=== PATIENT | female | born 1940 | race Caucasian/White ===

== ENCOUNTER 2021-04-27 07:25 | Outpatient (REF) | payer SELFPAY ==
[2021-04-27 08:04] LABS: Hematocrit 37.1 % (37.0-47.0); Hemoglobin 11.7 g/dl (12.0-16.0); Mean Corpuscular HGB Conc 31.5 g/dl (31.0-35.0); Mean Corpuscular Hemoglobin 29.7 pg (27.0-33.0); Mean Corpuscular Volume 94.2 fL (80.0-98.0); Mean Platelet Volume 12.2 fL (9.4-12.3); Platelet Count 206 X10*3/uL (160-400); Red Blood Count 3.94 X10*6/uL (4.20-5.50)
[2021-04-27 08:22] LABS: Alanine Aminotransferase < 6 U/L (0-31); Albumin Level 3.9 g/dL (3.5-5.0); Alkaline Phosphatase 81 U/L (39-117); Anion Gap 14 (12-20); Aspartate Amino Transferase 8 U/L (5-31); Bilirubin Total 0.6 mg/dL (0.0-1.0); Blood Urea Nitrogen 16 mg/dL (9-16); Carbon Dioxide 24 mmol/L (22-29); Chloride 107 mmol/L (96-108); Estimated Glomerular Filt Rate 35; Glucose Random 76 mg/dL (60-115); Potassium 4.8 mmol/L (3.3-5.1); Sodium 140 mmol/L (135-145); Total Protein 6.3 g/dL (6.5-8.0)
[2021-04-27 08:50] LABS: Atypical Lymph Absolute Manual 0.1 x10*3/uL; Atypical Lymphs Percent Manual 1 % (0-6); Band Neutrophils Percent 4 % (3-5); Eosinophils Absolute Manual 0.1 X10*3/uL (0.0-0.4); Eosinophils Percent Manual 1 % (0-4); Lymphocytes Absolute Manual 1.2 X10*3/uL (1.2-4.9); Lymphocytes Percent Manual 15 % (20-40); Monocytes Absolute Manual 0.7 X10*3/uL (0.1-1.2); Monocytes Percent Manual 9 % (2-11); Neutrophils Absolute Manual 5.9 X10*3/uL (2.0-8.3); Neutrophils Percent Manual 70 % (45-73); Platelet Estimate NORMAL (NORMAL); Platelet Morphology Comment NORMAL; RBC Morphology NORMAL
== END 2021-04-27 07:26 | disposition home or self-care (01) ==
LOC: HO.MMNH1L 07:25
PROVIDERS: Visit Provider Family Medicine
DX: N18.9 Chronic kidney disease, unspecified (principal)
CPT/HCPCS: 36415; 80053; 85007; 85025; 85027

== ENCOUNTER 2021-04-28 07:46 | Outpatient (REF) | payer SELFPAY ==
[2021-04-28 08:26] LABS: Lithium 0.74 mmol/L (0.60-1.20)
== END 2021-04-28 07:47 | disposition home or self-care (01) ==
LOC: HO.MMNH1L 07:46
PROVIDERS: Visit Provider Family Medicine
DX: I25.10 Atherosclerotic heart disease of native coronary artery without angina pectoris (principal); Z51.81 Encounter for therapeutic drug level monitoring; Z79.899 Other long term (current) drug therapy
CPT/HCPCS: 36415; 80178

== ENCOUNTER 2021-05-01 23:28 | Inpatient (IN) | payer MEDICARE, OTHER, SELFPAY ==
--- NOTE | ~2021-05-01 | US_ITS ---
EXAMINATION: US PELVIS CLINICAL INFORMATION: r/o ovarian torsion COMPARISON: CT from the same day. TECHNIQUE: Ultrasound of the pelvis is performed using both transabdominal and transvaginal transducers along with Doppler. Transvaginal imaging is performed due to inadequate visualization transabdominally. FINDINGS: Uterus: The uterus is anteverted and measures 5.1 x 2.3 x 3.8 cm. The endometrium is thin, measuring 3 mm in thickness. Trace endometrial fluid. The uterine myometrium is heterogeneous with areas of shadowing and abnormal contour, most consistent with intramural fibroids. These measure up to 2.2 cm in diameter. Adnexa: Right ovary measures 1.6 x 1.1 x 1.5 cm. It demonstrates normal blood flow on color and spectral Doppler with arterial waveforms. At the left adnexa, there is a 5.3 x 3.6 x 5.6 cm solid lesion with a discrete margin and heterogeneous, shadowing internal echogenicity. The site of origin of this is uncertain sonographically as it is contiguous with the uterus and extending into the adnexal region. There is a normal blood flow within this structure on color Doppler. There is a smaller structure in the left adnexal region measuring 1.9 x 1 x 1.4 cm which may correspond to the left ovary, separate from the aforementioned lesion, though this is not well assessed sonographically. US/US pelvic complete IMPRESSION: 1. A 5.6 cm solid left adnexal lesion with an uncertain site of origin on both ultrasound and CT, possibly ovarian in nature. MRI of the pelvis with and without contrast advised for further characterization of this lesion. 2. No evidence of ovarian torsion. 3. Small uterine fibroids..
--- NOTE | ~2021-05-01 | XR_ITS ---
EXAMINATION: CHEST AND SKULL. CLINICAL INFORMATION: MRI screening COMPARISON: None TECHNIQUE: 1 new. Skull to views. FINDINGS: Chest: The lungs are well-expanded and clear of acute process. The heart size and pulmonary vascularity is normal. No gross bony abnormality seen. Skull: There is no visible acute fracture or bony abnormality. Bilateral paranasal sinuses and mastoid air cells are well-aerated. No radiopaque foreign body seen. XR/XR chest 1V IMPRESSION: Remarkable chest exam. No radiopaque foreign body seen in the orbits.
--- NOTE | ~2021-05-01 | US_ITS ---
EXAMINATION: US PELVIS CLINICAL INFORMATION: r/o ovarian torsion COMPARISON: CT from the same day. TECHNIQUE: Ultrasound of the pelvis is performed using both transabdominal and transvaginal transducers along with Doppler. Transvaginal imaging is performed due to inadequate visualization transabdominally. FINDINGS: Uterus: The uterus is anteverted and measures 5.1 x 2.3 x 3.8 cm. The endometrium is thin, measuring 3 mm in thickness. Trace endometrial fluid. The uterine myometrium is heterogeneous with areas of shadowing and abnormal contour, most consistent with intramural fibroids. These measure up to 2.2 cm in diameter. Adnexa: Right ovary measures 1.6 x 1.1 x 1.5 cm. It demonstrates normal blood flow on color and spectral Doppler with arterial waveforms. At the left adnexa, there is a 5.3 x 3.6 x 5.6 cm solid lesion with a discrete margin and heterogeneous, shadowing internal echogenicity. The site of origin of this is uncertain sonographically as it is contiguous with the uterus and extending into the adnexal region. There is a normal blood flow within this structure on color Doppler. There is a smaller structure in the left adnexal region measuring 1.9 x 1 x 1.4 cm which may correspond to the left ovary, separate from the aforementioned lesion, though this is not well assessed sonographically. US/US pelvic ovarian doppler IMPRESSION: 1. A 5.6 cm solid left adnexal lesion with an uncertain site of origin on both ultrasound and CT, possibly ovarian in nature. MRI of the pelvis with and without contrast advised for further characterization of this lesion. 2. No evidence of ovarian torsion. 3. Small uterine fibroids..
--- NOTE | ~2021-05-01 | CT_ITS ---
EXAMINATION: CT ABDOMEN AND PELVIS WITHOUT CONTRAST CLINICAL INFORMATION: Bilateral lower quadrant pain. COMPARISON: None TECHNIQUE: Multidetector volumetric imaging was performed from the superior aspect of the liver through the pubic symphysis. Sagittal and coronal reformatted images were obtained on the technologist's workstation. This CT examination was performed using dose optimization techniques as appropriate, variously including the following: *Automated exposure control *Adjustment of mA and/or kV according to patient size (this includes techniques or standardized protocols for targeted exams where dose is matched to indication/reason for exam; i.e. extremities or head) *Use of iterative reconstruction technique DLP: 588 mGy-cm FINDINGS: LUNG BASES: Mild dependent atelectasis. Minimal bronchiectasis in the lower lobes. No cardiomegaly. Mild to moderate size sliding-type hiatal hernia. LIVER, GALLBLADDER, AND BILIARY TREE: The liver is normal in size, shape, and attenuation. No focal hepatic lesion or biliary ductal dilatation is present. Cholelithiasis. No gallbladder wall thickening or surrounding fat stranding to indicate acute cholecystitis. PANCREAS: Unremarkable. SPLEEN: There is a round, sharply marginated 3.3 cm splenic lesion with internal attenuation of 13 Hounsfield units, possibly a hemangioma. There is a 2 cm focus at the posterior inferior margin of the spleen which likely corresponds to a small splenule. ADRENAL GLANDS: There is mild nodular thickening of the left adrenal gland measuring up to 1.2 cm in diameter with a density of 5 Hounsfield units, most consistent with lipid rich adenomatous changes. KIDNEYS AND URETERS: Numerous bilateral renal parenchymal calcifications are identified in the uncinate etiology. No appreciable renal calculi. Kidneys are normal in size and contour with normal cortical thickness. No hydronephrosis or hydroureter. No perinephric stranding. BLADDER: Unremarkable. GASTROINTESTINAL TRACT: Stomach, small bowel, and colon are normal in caliber. Noted above, there is a small to moderate-sized hiatal hernia. Normal appendix. Moderate diffuse colonic diverticulosis. Moderate stool volume. No intracranial free fluid or free air. ABDOMINAL WALL: No significant hernia is appreciated. LYMPH NODES: Normal. VASCULAR: Calcific atherosclerotic disease is evident within the aorta and iliac arteries. PELVIC VISCERA: Multiple calcified uterine fibroids are noted. There is a large noncalcified 8 x 4.6 x 5 cm soft tissue focus at the left adnexa, likely corresponding to the left ovary. No right adnexal lesions are identified. OSSEOUS STRUCTURES: Moderate to severe multilevel degenerative disc disease in the lumbar spine with grade 1 retrolisthesis of L1 on L2. Multilevel degenerative disc disease. No fractures. Mild osteoarthritis in the hips. Bones are osteopenic. CT/CT abdomen pelvis wo con IMPRESSION: 1. An 8 cm left adnexal lesion occupying the majority of the right ovary. Further assessment with ultrasound is advised. A pedunculated fibroid could have this appearance, though would be atypical at this size for the patient's age in the absence of calcifications. A primary ovarian lesion is suspected. 2. Otherwise, no acute abnormalities identified in the abdomen and pelvis. 3. Moderate colonic diverticulosis without evidence of acute diverticulitis. 4. Small to moderate-sized sliding-type hiatal hernia. 5. Numerous bilateral renal parenchymal calcifications which are of uncertain etiology, favored to correspond to cortical nephrocalcinosis. In the absence of a contributing clinical history (such as glomerulonephritis or a known metabolic syndrome), a prior opportunistic infection is a consideration. 6. A 2.3 cm splenic lesion has a nonaggressive appearance, most likely hemangioma. Consider correlation with MRI of the abdomen with and without contrast on a nonemergent basis if warranted clinically.
--- NOTE | ~2021-05-01 | XR_ITS ---
EXAMINATION: CHEST AND SKULL. CLINICAL INFORMATION: MRI screening COMPARISON: None TECHNIQUE: 1 new. Skull to views. FINDINGS: Chest: The lungs are well-expanded and clear of acute process. The heart size and pulmonary vascularity is normal. No gross bony abnormality seen. Skull: There is no visible acute fracture or bony abnormality. Bilateral paranasal sinuses and mastoid air cells are well-aerated. No radiopaque foreign body seen. XR/XR skull <4V IMPRESSION: Remarkable chest exam. No radiopaque foreign body seen in the orbits.
--- NOTE | ~2021-05-01 | MR_ITS ---
EXAMINATION: MR PELVIS WITHOUT AND WITH CONTRAST CLINICAL INFORMATION: 80-year-old female with adnexal mass. COMPARISON: Pelvic ultrasound and CT imaging from 05/02/2021 TECHNIQUE: MR imaging the pelvis is performed using standard sequences on a high-field magnet without and with intravenous administration of 6.5 mL Gadavist. FINDINGS: The anteflexed, anteverted uterus measures 7.5 x 3.2 x 4.2 cm (cervix to fundus x AP x transverse dimensions). The cervix is normal. The endometrium is normal; it measures 0.4 cm AP. A 2.1 cm hypointense structure of the left anterior uterine body represents a leiomyoma. A T2 hypointense, partially calcified subserosal leiomyoma of the anterior right fundus measures up to 1.4 cm. A partially calcified subserosal/exophytic leiomyoma of the posterior left uterine body measures up to 2 cm. A 4.4 x 7.8 x 5.5 cm heterogeneous lesion in the left adnexal area is predominantly T2 hypointense and, on the T1-weighted images, is isointense to the uterine myometrium. On the T2-weighted images, this has the appearance of a partially degenerated leiomyoma. It enhances heterogeneously and mildly after contrast administration. This likely represents a large subserosal, pedunculated leiomyoma with likely very thin stalk of attachment to the uterine surface. The ovaries are not well seen and are likely chronically atrophied. A 0.9 x 1.5 cm structure that projects just superior to the suspected left-sided pedunculated leiomyoma probably represents the atrophied left ovary. A small, 1.2 x 1.6 cm structure in the right adnexal area is likely the atrophied right ovary. No pelvic free fluid. Urinary bladder is well distended and has normal wall thickness. No bladder mass. No iliac or inguinal lymphadenopathy. No dilated bowel loops within the visualized lower abdomen or pelvis. Diverticulosis of the sigmoid colon without diverticulitis. Degenerative disc disease of L4-L5. At L5-S1, facet arthropathy is associated with minimal anterolisthesis of L5 on S1. MR/MR pelvis wo/w con IMPRESSION: There are multiple uterine leiomyomas. The 4.4 x 7.8 x 5.5 cm heterogeneous, predominantly T2 hypointense structure in the left adnexal area appears to represent a pedunculated leiomyoma. There appear to be small, atrophied ovaries. There is no pelvic free fluid or lymphadenopathy.
[2021-05-01 23:34] VITALS: BP 158/79; PULSE 74; RESP 12; TEMP 37.3; O2SAT 99; BMI 26.0
[2021-05-01 23:53] LABS: Hematocrit 34.9 % (37.0-47.0); Hemoglobin 11.4 g/dl (12.0-16.0); Mean Corpuscular HGB Conc 32.7 g/dl (31.0-35.0); Mean Corpuscular Hemoglobin 29.2 pg (27.0-33.0); Mean Corpuscular Volume 89.3 fL (80.0-98.0); Mean Platelet Volume 11.9 fL (9.4-12.3); Platelet Count 185 X10*3/uL (160-400); Red Blood Count 3.91 X10*6/uL (4.20-5.50); White Blood Count 10.9 X10*3/uL (4.8-10.8)
[2021-05-02] VITALS (8 sets, daily range): BP systolic 127–166; BP diastolic 58–93; PULSE 66–74; RESP 16–21; TEMP 36.6–37.2; O2SAT 94–99
[2021-05-02 00:06] LABS: COVID-19 Test Negative (Negative)
[2021-05-02 00:17] LABS: Alanine Aminotransferase < 6 U/L (0-31); Alkaline Phosphatase 83 U/L (39-117); Anion Gap 14 (12-20); Aspartate Amino Transferase 8 U/L (5-31); Bilirubin Total 0.5 mg/dL (0.0-1.0); Blood Urea Nitrogen 20 mg/dL (9-16); Calcium 9.8 mg/dL (8.4-10.2); Carbon Dioxide 22 mmol/L (22-29); Chloride 101 mmol/L (96-108); Creatinine Clr Calc Pharmacy 22.7; Estimated Glomerular Filt Rate 27; Glucose Random 119 mg/dL (60-115); Potassium 4.7 mmol/L (3.3-5.1); Sodium 132 mmol/L (135-145); Total Protein 6.3 g/dL (6.5-8.0)
--- NOTE | 2021-05-02 00:30 | PC.NURSE ---
Assumed care of pt Pt from [facility] c/o RT and LT sided abdominal pain. 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
[2021-05-02 00:40] LABS: Acanthocytes 1+ (0-2) /OIF; Band Neutrophils Percent 7 % (3-5); Burr Cells 1+ (0-2) /OIF; Eosinophils Absolute Manual 0.1 X10*3/uL (0.0-0.4); Eosinophils Percent Manual 1 % (0-4); Lymphocytes Absolute Manual 0.9 X10*3/uL (1.2-4.9); Lymphocytes Percent Manual 8 % (20-40); Monocytes Absolute Manual 0.5 X10*3/uL (0.1-1.2); Monocytes Percent Manual 5 % (2-11); Neutrophils Absolute Manual 9.4 X10*3/uL (2.0-8.3); Neutrophils Percent Manual 79 % (45-73); Platelet Estimate SLIGHTLY DECREASED (NORMAL); Platelet Morphology Comment NORMAL; RBC Morphology NORMAL; Schistocytes 1+ (0-2) /OIF; Smudge Cells PRESENT
--- NOTE | 2021-05-02 00:46 | ED.ABDPAIN ---
HPI - Abdominal Pain General Chief Complaint: Abdominal Pain Stated Complaint: abd pain Time Seen by Provider: 05/02/21 00:35 Source: patient Mode of arrival: ambulatory Limitations: no limitations History of Present Illness HPI narrative: Patient comes emergency room complaining of bilateral lower quadrant pain. Patient has memory issues, but states that she believes it has been approximately 3 days, related to constipation. Patient had 1 episode of vomiting, no diarrhea, no fever chills, does not remember if she has UTI like symptoms. Related Data Allergies Allergy/AdvReac Type Severity Reaction Status Date / Time omeprazole [From PRILOSEC] Allergy Unknown ITCHY Unverified 10/25/19 16:16 Sulfa (Sulfonamide Allergy Unknown ? RXN - Unverified 10/25/19 16:16 Antibiotics) HAD [SULFA(SULFONAMIDE CHILD ANTIBIOTICS)] From PRILOSEC Allergy Unknown ITCHY Uncoded 10/25/19 16:16 Review of Systems Review of Systems Constitutional : No Weight loss, No Fever, No Chills, No Night Sweats, No Fatigue, No Malaise ENT/Mouth : No Hearing loss, No Ear Pain, No Nasal Congestion, No Sinus Pain, No Hoarseness, No sore throat, No Rhinorrhea, No Swallowing Difficulty Eyes: No Eye Pain, No Swelling, No Redness, No Foreign Body, No Discharge, No Vision Changes Cardiovascular : No Chest Pain, No SOB, No Dyspnea on Exertion, No Orthopnea, No Edema, No Palpitations Respiratory : No Cough, No Sputum, No Wheezing, No Smoke Exposure, No Dyspnea Gastrointestinal : No Nausea, 1 episode of vomiting prior to arrival, No Diarrhea, complaining of constipation, last BM 3 days ago, complaining of abdominal lower pain bilaterally, No Hematochezia, No Melena Genitourinary : no irregular bleeding, No Dysuria, No Urinary Frequency, No Hematuria, No Urinary Incontinence, No Urgency, No Flank Pain, No Urinary Flow Changes, No Hesitancy Musculoskeletal : No joint pain, No Myalgias, No Joint Swelling Skin : No Skin Lesions, No rash Neuro : No Weakness, No Numbness, No Paresthesias, No Loss of Consciousness, No Dizziness, No Headache Psych : No Anxiety/Panic, No Depression, No SI/HI/AH/VH, No Social Issues, Heme/Lymph: No Bruising, No Bleeding,No Lymphadenopathy Endocrine : No Polyuria, No Polydipsia, No Temperature Intolerance [facility] Past Medical History Medical History (Updated 05/02/21 @ 06:20 by Meliza Naik MD) Bipolar disorder Chronic kidney disease, stage 3 Depression GERD (gastroesophageal reflux disease) Hypothyroidism Parkinsons Sarcoidosis Social History Social History Advance Directives: No Advance Directives Information Provided: No Physical Exam ED Vital Signs: Vital Signs - 24 hr 05/01/21 23:34 05/02/21 01:04 05/02/21 02:34 Temperature 99.2 F 99.0 F Pulse Rate 74 66 72 Respiratory Rate 12 18 18 Blood Pressure 158/79 H 161/82 H 149/79 H Pulse Oximetry 99 98 98 BMI result Body Mass Index 26.0 Const Other: Appearance: Alert. Oriented X3. No acute distress. Anxious Eyes: Pupils equal, round and reactive to light. ENT: Pharynx normal. Neck: Normal inspection. Neck supple. No lymph nodes noted. No crepitus CVS: Normal heart rate and rhythm. Pulses normal. Normal S1 and S2 Respiratory: No respiratory distress. Breath sounds normal. No Wheezing. No rales Abdomen: Soft, mild distension, [id number] lower quadrant pain on deep palpation and suprapubic area, no rebound, no guarding Skin: Skin warm and dry. Normal skin color. Normal skin turgor. Extremities: No lower extremity edema. No Lacerations. No Rash Neuro: Oriented X 3. No motor deficit. No sensory deficit. Moving all extremities. No slurred speech. CN 2 through 12 grossly intact Psych: calm, cooperative, normal affect but slightly anxious Course Course Course Narrative: Patient has a mildly elevated creatinine, likely chronic, per patient's paper she has history of chronic kidney disease stage 3. I discussed the labs and imaging with the patient. Patient seems comfortable, ovarian torsion is not suspected. 03:45, patient states that her abdominal pain has only gotten worse, can not point to where the pain is, location changes. At this time, we will go ahead and order the ultrasound to rule out torsion. Ultrasound does not show torsion, however patient will need MRI. Patient continues having bilateral lower quadrant pain. Patient giving an additional dose of 1 mg of morphine. I discussed the patient with Dr. Bloom, pt being admitted MDM - Abdominal Pain Lab Data Result diagrams: 05/01/21 23:47 05/01/21 23:47 Labs: Lab Results 05/01/21 05/01/21 05/01/21 Range/Units 23:47 23:47 23:47 WBC 10.9 H (4.8-10.8) X10*3/uL RBC 3.91 L (4.20-5.50) X10*6/uL Hgb 11.4 L (12.0-16.0) g/dl Hct 34.9 L (37.0-47.0) % MCV 89.3 (80.0-98.0) fL MCH 29.2 (27.0-33.0) pg MCHC 32.7 (31.0-35.0) g/dl RDW 13.0 (11.0-16.0) % Plt Count 185 (160-400) X10*3/uL MPV 11.9 (9.4-12.3) fL Immature Gran % (Auto) Cancelled Neut % (Auto) Cancelled Lymph % (Auto) Cancelled [place] % (Auto) Cancelled Eos % (Auto) Cancelled Baso % (Auto) Cancelled Lymph # (Auto) Cancelled [place] # (Auto) Cancelled Eos # (Auto) Cancelled Baso # (Auto) Cancelled Abs Immat Gran (auto) Cancelled Absolute Neuts (auto) Cancelled Absolute Nucleated RBC 0.000 (0.0-0.012) X10*3/uL Nucleated RBC % (auto) 0.0 (0.0-0.2) /100WBC Neutrophils % (Manual) 79 H (45-73) % Band Neutrophils % 7 H (3-5) % Lymphocytes % (Manual) 8 L (20-40) % Monocytes % (Manual) 5 (2-11) % Eosinophils % (Manual) 1 (0-4) % Abs Neuts (Manual) 9.4 H (2.0-8.3) X10*3/uL Lymphocytes # (Manual) 0.9 L (1.2-4.9) X10*3/uL Monocytes # (Manual) 0.5 (0.1-1.2) X10*3/uL Eosinophils # (Manual) 0.1 (0.0-0.4) X10*3/uL Smudge Cells PRESENT Platelet Estimate SLIGHTLY DECREASED (NORMAL) Plt Morphology Comment NORMAL RBC Morphology NORMAL Ty Cells 1+ (0-2) /OIF Acanthocytes (Spur) 1+ (0-2) /OIF Schistocytes 1+ (0-2) /OIF Sodium 132 L (135-145) mmol/L Potassium 4.7 (3.3-5.1) mmol/L Chloride 101 (96-108) mmol/L Carbon Dioxide 22 (22-29) mmol/L Anion Gap 14 (12-20) BUN 20 H (9-16) mg/dL Creatinine 1.81 H (0.5-1.4) mg/dL Estim Creat Clear Calc 22.7 Estimated GFR 27 Random Glucose 119 H (60-115) mg/dL Calcium 9.8 (8.4-10.2) mg/dL Total Bilirubin 0.5 (0.0-1.0) mg/dL AST 8 (5-31) U/L ALT < 6 (0-31) U/L Alkaline Phosphatase 83 (39-117) U/L Total Protein 6.3 L (6.5-8.0) g/dL Albumin 4.0 (3.5-5.0) g/dL Urine Color Urine Appearance Urine pH (5.0-8.0) Ur Specific [place] (1.005-1.025) Urine Protein (NEG-TRACE) MG/DL Urine Glucose (UA) (NEG) MG/DL Urine Ketones (NEG) MG/DL Urine Blood (NEG) Urine Nitrite (NEG) Ur Leukocyte Esterase (NEG) COVID-19 (YASEMIN) Negative (Negative) COVID-19 Clin Com See Note 05/02/21 Range/Units 01:29 WBC (4.8-10.8) X10*3/uL RBC (4.20-5.50) X10*6/uL Hgb (12.0-16.0) g/dl Hct (37.0-47.0) % MCV (80.0-98.0) fL MCH (27.0-33.0) pg MCHC (31.0-35.0) g/dl RDW (11.0-16.0) % Plt Count (160-400) X10*3/uL MPV (9.4-12.3) fL Immature Gran % (Auto) Neut % (Auto) Lymph % (Auto) [place] % (Auto) Eos % (Auto) Baso % (Auto) Lymph # (Auto) [place] # (Auto) Eos # (Auto) Baso # (Auto) Abs Immat Gran (auto) Absolute Neuts (auto) Absolute Nucleated RBC (0.0-0.012) X10*3/uL Nucleated RBC % (auto) (0.0-0.2) /100WBC Neutrophils % (Manual) (45-73) % Band Neutrophils % (3-5) % Lymphocytes % (Manual) (20-40) % Monocytes % (Manual) (2-11) % Eosinophils % (Manual) (0-4) % Abs Neuts (Manual) (2.0-8.3) X10*3/uL Lymphocytes # (Manual) (1.2-4.9) X10*3/uL Monocytes # (Manual) (0.1-1.2) X10*3/uL Eosinophils # (Manual) (0.0-0.4) X10*3/uL Smudge Cells Platelet Estimate (NORMAL) Plt Morphology Comment RBC Morphology Ty Cells /OIF Acanthocytes ([place]) /OIF Schistocytes /OIF Sodium (135-145) mmol/L Potassium (3.3-5.1) mmol/L Chloride (96-108) mmol/L Carbon Dioxide (22-29) mmol/L Anion Gap (12-20) BUN (9-16) mg/dL Creatinine (0.5-1.4) mg/dL Estim Creat Clear Calc Estimated GFR Random Glucose (60-115) mg/dL Calcium (8.4-10.2) mg/dL Total Bilirubin (0.0-1.0) mg/dL AST (5-31) U/L ALT (0-31) U/L Alkaline Phosphatase (39-117) U/L Total Protein (6.5-8.0) g/dL Albumin (3.5-5.0) g/dL Urine Color STRAW Urine Appearance CLEAR Urine pH 7.0 (5.0-8.0) Ur Specific [place] <= 1.005 (1.005-1.025) Urine Protein NEG (NEG-TRACE) MG/DL Urine Glucose (UA) NEG (NEG) MG/DL Urine Ketones NEG (NEG) MG/DL Urine Blood NEG (NEG) Urine Nitrite NEG (NEG) Ur Leukocyte Esterase NEG (NEG) COVID-19 (YASEMIN) (Negative) COVID-19 Clin Com Imaging Data US - abdomen: Radiologist's impression: Uterus: The uterus is anteverted and measures 5.1 x 2.3 x 3.8 cm.? The endometrium is thin, measuring 3 mm in thickness. Trace endometrial fluid. The uterine myometrium is heterogeneous with areas of shadowing and abnormal contour, most consistent with intramural fibroids. These measure up to 2.2 cm in diameter. Adnexa: Right ovary measures 1.6 x 1.1 x 1.5 cm. It demonstrates normal blood flow on color and spectral Doppler with arterial waveforms. At the left adnexa, there is a 5.3 x 3.6 x 5.6 cm solid lesion with a discrete margin and heterogeneous, shadowing internal echogenicity. The site of origin of this is uncertain sonographically as it is contiguous with the uterus and extending into the adnexal region. There is a normal blood flow within this structure on color Doppler. There is a smaller structure in the left adnexal region measuring 1.9 x 1 x 1.4 cm which may correspond to the left ovary, separate from the aforementioned lesion, though this is not well assessed sonographically. US/US pelvic ovarian doppler IMPRESSION: 1. A 5.6 cm solid left adnexal lesion with an uncertain site of origin on both ultrasound and CT, possibly ovarian in nature. MRI of the pelvis with and without contrast advised for further characterization of this lesion. 2. No evidence of ovarian torsion. 3. Small uterine fibroids.. CT scan - abdomen: Radiologist's impression: FINDINGS: LUNG BASES: Mild dependent atelectasis. Minimal bronchiectasis in the lower lobes. No cardiomegaly. Mild to moderate size sliding-type hiatal hernia.? LIVER, GALLBLADDER, AND BILIARY TREE: The liver is normal in size, shape, and attenuation. No focal hepatic lesion or biliary ductal dilatation is present. Cholelithiasis. No gallbladder wall thickening or surrounding fat stranding to indicate acute cholecystitis.? PANCREAS: Unremarkable.? SPLEEN: There is a round, sharply marginated 3.3 cm splenic lesion with internal attenuation of 13 Hounsfield units, possibly a hemangioma. There is a 2 cm focus at the posterior inferior margin of the spleen which likely corresponds to a small splenule. ADRENAL GLANDS: There is mild nodular thickening of the left adrenal gland measuring up to 1.2 cm in diameter with a density of 5 Hounsfield units, most consistent with lipid rich adenomatous changes.? KIDNEYS AND URETERS: Numerous bilateral renal parenchymal calcifications are identified in the uncinate etiology. No appreciable renal calculi. Kidneys are normal in size and contour with normal cortical thickness. No hydronephrosis or hydroureter. No perinephric stranding. BLADDER: Unremarkable.? GASTROINTESTINAL TRACT: Stomach, small bowel, and colon are normal in caliber. Noted above, there is a small to moderate-sized hiatal hernia. Normal appendix. Moderate diffuse colonic diverticulosis. Moderate stool volume. No intracranial free fluid or free air.? ABDOMINAL WALL: No significant hernia is appreciated.? LYMPH NODES: Normal. VASCULAR: Calcific atherosclerotic disease is evident within the aorta and iliac arteries. PELVIC VISCERA: Multiple calcified uterine fibroids are noted. There is a large noncalcified 8 x 4.6 x 5 cm soft tissue focus at the left adnexa, likely corresponding to the left ovary. No right adnexal lesions are identified.? OSSEOUS STRUCTURES: Moderate to severe multilevel degenerative disc disease in the lumbar spine with grade 1 retrolisthesis of L1 on L2. Multilevel degenerative disc disease. No fractures. Mild osteoarthritis in the hips. Bones are osteopenic.? CT/CT abdomen pelvis wo con IMPRESSION: 1. An 8 cm left adnexal lesion occupying the majority of the right ovary. Further assessment with ultrasound is advised. A pedunculated fibroid could have this appearance, though would be atypical at this size for the patient's age in the absence of calcifications. A primary ovarian lesion is suspected. 2. Otherwise, no acute abnormalities identified in the abdomen and pelvis. 3. Moderate colonic diverticulosis without evidence of acute diverticulitis. 4. Small to moderate-sized sliding-type hiatal hernia. 5. Numerous bilateral renal parenchymal calcifications which are of uncertain etiology, favored to correspond to cortical nephrocalcinosis. In the absence of a contributing clinical history (such as glomerulonephritis or a known metabolic syndrome), a prior opportunistic infection is a consideration. 6. A 2.3 cm splenic lesion has a nonaggressive appearance, most likely hemangioma. Consider correlation with MRI of the abdomen with and without contrast on a nonemergent basis if warranted clinically. Discharge Plan Discharge Clinical Impression: Abdominal pain, Mass of ovary Patient Disposition: Admitted As Inpatient
[2021-05-02 01:35] LABS: Appearance Urine CLEAR; Color Urine STRAW; Glucose Urine UA NEG (NEG); Leukocyte Esterase Urine NEG (NEG); Nitrite Urine NEG (NEG); Specific Gravity - Urine <= 1.005 (1.005-1.025); Urine Blood NEG (NEG); Urine Ketones NEG (NEG); Urine Protein NEG (NEG-TRACE)
[2021-05-02] MEDS: 0.9 % Sodium Chloride 1,000 ML 999 ML IVCONT (02:46)
[2021-05-02] MEDS: Morphine Sulfate 2 MG/ML CARTRIDGE IVPUSH (03:35)
[2021-05-02] MEDS: ondansetron HCL 4 MG/2 ML VIAL IVPUSH (03:43)
--- NOTE | 2021-05-02 04:45 | PC.NURSE ---
Pt to US
[2021-05-02] MEDS: Morphine Sulfate 2 MG/ML CARTRIDGE 1 MG IVPUSH (06:27)
--- NOTE | 2021-05-02 08:06 | PHA.MEDREC ---
Pharmacy Consult ? Medication Reconciliation Pharmacy has completed the medication reconciliation.
[2021-05-02] MEDS: Dextrose 5 % and 0.9 % NaCl 1,000 ML 100 ML IVCONT (08:20)
[2021-05-02] MEDS: 0.9 % Sodium Chloride Flush 3 ML SYRINGE IVFLUSH ×3 (08:21→22:50)
[2021-05-02] MEDS: Carbidopa/Levodopa 25/100 TABLET 3 TAB PO ×3 (08:21→22:47)
[2021-05-02] MEDS: Enoxaparin Sodium 30 MG/0.3 ML SYRINGE SUBCUT (08:22)
--- NOTE | 2021-05-02 09:22 | MHC.CM.PN ---
CM CALLED [facility] [phone] AND CONFIRMED WITH PLANNING ADVISOR THAT PT WAS SENT FROM THEIR 1ST FLOOR UNIT CM REQUESTED TO SPEAK THE A NURSE ON THAT UNIT, HOWEVER THEY NEVER PICKED UP THE PHONE ONCE CALL WAS TRANSFERRED. CM AWAITING LIAISON RESPONSE IN [facility] TO DETERMINE IF PT IS LTC VS STR AND IF SHE HAS A HCP
--- NOTE | 2021-05-02 09:34 | P.HPHOSP_ITS ---
History of Present Illness Date of Service: 05/02/21 Chief Complaint: Abdominal pain Pleasantly confused 80-year-old female from local [facility] presents with diffuse lower abdominal pain. She cannot give exact history however notes a this is been worsening over the last several days. There is no mention of fever or c hills. She cannot offer any more detailed history secondary to dementia. In the emergency room, she received an abdominal pelvis CT, a Doppler study and ultimately a pelvic ultrasound which demonstrated a 5.6 solid left adnexal lesion with an uncertain site of origin. This correlated with both ultrasound Doppler and CT. No evidence of ovarian torsion. She will be admitted for pain management further workup of this mass Review of Systems Review of Systems: Unable to obtain secondary to dementia [facility] Medical History (Updated 05/02/21 @ 09:40 by Jerald Quezada DO) Bipolar disorder Chronic kidney disease, stage 3 Depression GERD (gastroesophageal reflux disease) Hypothyroidism Parkinsons Sarcoidosis Social History Advance Directives: No Advance Directives Information Provided: No Meds Allergies Allergy/AdvReac Type Severity Reaction Status Date / Time Sulfa (Sulfonamide Allergy Unknown ? RXN - Verified 05/02/21 08:25 Antibiotics) HAD [SULFA(SULFONAMIDE CHILD ANTIBIOTICS)] amlodipine Allergy Unknown Verified 05/02/21 08:24 lansoprazole [From Prevacid] Allergy Unknown Verified 05/02/21 08:24 oxycodone Allergy Unknown Verified 05/02/21 08:24 ranitidine Allergy Unknown Verified 05/02/21 08:24 Active Medications: Current Medications Acetaminophen (Acetaminophen 325 Mg Tablet) 650 mg PO Q6H PRN PRN Reason: Pain, Mild (Pain Scale 1-3) Carbidopa/Levodopa (Carbidopa/Levodopa 25/100 Tablet) 3 tab PO TID [facility] Last Admin: 05/02/21 08:21 Dose: 3 tab Documented by: Clonazepam (Clonazepam 1 Mg Tablet) 2 mg PO BEDTIME YAZMIN Enoxaparin Sodium (Enoxaparin Sodium 30 Mg/0.3 Ml Syringe) 30 mg SUBCUT Q24H YAZMIN Last Admin: 05/02/21 08:22 Dose: 30 mg Documented by: Dextrose/Sodium Chloride (D5ns) 1,000 mls @ 100 mls/hr IVCONT .Q10H YAZMIN Last Admin: 05/02/21 08:20 Dose: 100 mls/hr Documented by: Levothyroxine Sodium (Levothyroxine Sodium 100 Mcg Tablet) 100 mcg PO MOTUWETHFRSA@0600 [facility] Levothyroxine Sodium (Levothyroxine Sodium 200 Mcg Tablet) 200 mcg PO HICKS@0600 [facility] Ethan Carbonate (Ethan Carbonate 300 Mg Tablet) 150 mg PO BEDTIME [facility] Morphine Sulfate (Morphine Sulfate 2 Mg/Ml Cartridge) 2 mg IVPUSH Q4H PRN; Protocol PRN Reason: Pain, Severe (Pain Scale 7-10) Ondansetron HCl (Ondansetron Hcl 4 Mg/2 Ml Vial) 4 mg IVPUSH Q8H PRN PRN Reason: Nausea and Vomiting Quetiapine Fumarate (Quetiapine Fumarate 100 Mg Tablet) 100 mg PO BEDTIME [facility] Sodium Chloride (0.9 % Sodium Chloride Flush 3 Ml Syringe) 3 ml IVFLUSH QSHIFT [facility] Last Admin: 05/02/21 08:21 Dose: 3 ml Documented by: Home Medications Medication Instructions Recorded Confirmed Last Taken Type carbidopa 25 mg-levodopa 100 mg 3 tab PO TID 05/02/21 05/02/21 Unknown History tablet clonazepam 2 mg tablet 1 tab PO BEDTIME 05/02/21 05/02/21 Unknown History lansoprazole 30 mg capsule,delayed 1 cap PO DAILY 05/02/21 05/02/21 Unknown His tory release levothyroxine 100 mcg tablet 100 mcg PO MOTUWETHFRSA@0600 05/02/21 05/02/21 Unk nown History levothyroxine 100 mcg tablet 200 mcg PO HICKS@0600 05/02/21 05/02/21 Unknown History lithium carbonate 150 mg capsule 1 cap PO BEDTIME 05/02/21 05/02/21 Unknown History meclizine 25 mg tablet 25 mg PO DAILY 05/02/21 05/02/21 Unknown History ondansetron HCl 4 mg tablet 4 mg PO Q6H PRN 05/02/21 05/02/21 Unknown History quetiapine 100 mg tablet 1 tab PO BEDTIME 05/02/21 05/02/21 Unknown History Physical Exam Vital Signs and Narrative: Vital Signs: Last Vital Signs Temp 98.6 F 05/02/21 07:37 Pulse 72 05/02/21 07:37 Resp 20 05/02/21 07:37 BP 159/93 H 05/02/21 07:37 Pulse Ox 96 05/02/21 07:37 BMI result Body Mass Index 26.0 Const: Other: Awake, confused, uncomfortable appearing Resp: Other: Clear to auscultation bilaterally. No rales rhonchi or wheezes Cardio: Other: No S4; positive S1-S2; no S3 murmurs rubs or gallops GI: Other: Diffusely tender across lower abdomen without rebound tenderness. Bowel sounds are normal x4 quadrants Extrem: Other: No edema bilaterally Results Labs CBC and Chem 7: 05/01/21 23:47 05/01/21 23:47 Labs: Laboratory Results - last 24 hr 05/01/21 05/01/21 05/01/21 23:47 23:47 23:47 MCV 89.3 MCH 29.2 MCHC 32.7 RDW 13.0 Plt Count 185 MPV 11.9 Immature Gran % (Auto) Cancelled Neut % (Auto) Cancelled Lymph % (Auto) Cancelled [place] % (Auto) Cancelled Eos % (Auto) Cancelled Baso % (Auto) Cancelled Lymph # (Auto) Cancelled [place] # (Auto) Cancelled Eos # (Auto) Cancelled Baso # (Auto) Cancelled Abs Immat Gran (auto) Cancelled Absolute Neuts (auto) Cancelled Absolute Nucleated RBC 0.000 Nucleated RBC % (auto) 0.0 Neutrophils % (Manual) 79 H Band Neutrophils % 7 H Lymphocytes % (Manual) 8 L Monocytes % (Manual) 5 Eosinophils % (Manual) 1 Abs Neuts (Manual) 9.4 H Lymphocytes # (Manual) 0.9 L Monocytes # (Manual) 0.5 Eosinophils # (Manual) 0.1 Smudge Cells PRESENT Platelet Estimate SLIGHTLY DECREASED Plt Morphology Comment NORMAL RBC Morphology NORMAL Ty Cells 1+ (0-2) Acanthocytes (Spur) 1+ (0-2) Schistocytes 1+ (0-2) Anion Gap 14 Estim Creat Clear Calc 22.7 Estimated GFR 27 Random Glucose 119 H Calcium 9.8 Total Bilirubin 0.5 AST 8 ALT < 6 Alkaline Phosphatase 83 Total Protein 6.3 L Albumin 4.0 Urine Color Urine Appearance Urine pH Ur Specific [place] Urine Protein Urine Glucose (UA) Urine Ketones Urine Blood Urine Nitrite Ur Leukocyte Esterase COVID-19 (YASEMIN) Negative COVID-19 Clin Com See Note 05/02/21 01:29 MCV MCH MCHC RDW Plt Count MPV Immature Gran % (Auto) Neut % (Auto) Lymph % (Auto) [place] % (Auto) Eos % (Auto) Baso % (Auto) Lymph # (Auto) [place] # (Auto) Eos # (Auto) Baso # (Auto) Abs Immat Gran (auto) Absolute Neuts (auto) Absolute Nucleated RBC Nucleated RBC % (auto) Neutrophils % (Manual) Band Neutrophils % Lymphocytes % (Manual) Monocytes % (Manual) Eosinophils % (Manual) Abs Neuts (Manual) Lymphocytes # (Manual) Monocytes # (Manual) Eosinophils # (Manual) Smudge Cells Platelet Estimate Plt Morphology Comment RBC Morphology [place] Cells Acanthocytes (Spur) Schistocytes Anion Gap Estim Creat Clear Calc Estimated GFR Random Glucose Calcium Total Bilirubin AST ALT Alkaline Phosphatase Total Protein Albumin Urine Color STRAW Urine Appearance CLEAR Urine pH 7.0 Ur Specific [place] <= 1.005 Urine Protein NEG Urine Glucose (UA) NEG Urine Ketones NEG Urine Blood NEG Urine Nitrite NEG Ur Leukocyte Esterase NEG COVID-19 (YASEMIN) COVID-19 Clin Com Imaging Radiologist's Impressions: Impressions Abdomen/Pelvis CT 05/02/21 00:57 IMPRESSION: 1. An 8 cm left adnexal lesion occupying the majority of the right ovary. Further assessment with ultrasound is advised. A pedunculated fibroid could have this appearance, though would be atypical at this size for the patient's age in the absence of calcifications. A primary ovarian lesion is suspected. 2. Otherwise, no acute abnormalities identified in the abdomen and pelvis. 3. Moderate colonic diverticulosis without evidence of acute diverticulitis. 4. Small to moderate-sized sliding-type hiatal hernia. 5. Numerous bilateral renal parenchymal calcifications which are of uncertain etiology, favored to correspond to cortical nephrocalcinosis. In the absence of a contributing clinical history (such as glomerulonephritis or a known metabolic syndrome), a prior opportunistic infection is a consideration. 6. A 2.3 cm splenic lesion has a nonaggressive appearance, most likely hemangioma. Consider correlation with MRI of the abdomen with and without contrast on a nonemergent basis if warranted clinically. Doppler Study Ultrasound 05/02/21 05:25 IMPRESSION: 1. A 5.6 cm solid left adnexal lesion with an uncertain site of origin on both ultrasound and CT, possibly ovarian in nature. MRI of the pelvis with and without contrast advised for further characterization of this lesion. 2. No evidence of ovarian torsion. 3. Small uterine fibroids.. Pelvis Ultrasound 05/02/21 05:25 IMPRESSION: 1. A 5.6 cm solid left adnexal lesion with an uncertain site of origin on both ultrasound and CT, possibly ovarian in nature. MRI of the pelvis with and without contrast advised for further characterization of this lesion. 2. No evidence of ovarian torsion. 3. Small uterine fibroids.. Assessment and Plan (1) Abdominal pain: Status: Acute (2) Parkinsons: Status: Acute (3) Chronic kidney disease, stage 3: Status: Acute (4) Bipolar disorder: Status: Acute Plan 80-year-old female with an history of bipolar disorder and dementia along with Parkinson's and chronic kidney disease presents with abdominal pain. Workup suspicious for ovarian mass. 1.Abdominal pain(suspicious for ovarian mass) -MRI of abdomen ordered to qualify ovarian mass -pain control with morphine given allergy to oxycodone -further plans based on forthcoming data from MRI 2. Acute on CKD3 -gentle volume repletion -follow renal/divalents 3. Hyponatremia(hypovolemic) -IVFs - follow sodium in am 4. Parkinsons -continue Caridopa-levadopa as per outpatient dosing Full Code Lovenox Will likely need 2 additional midnights going forward for further workup/evaluation of ovarian maa Quality Stroke Does the patient have a stroke diagnosis?: No VTE Prior VTE?: No VTE Risk Level:: Medical - moderate - high VTE Device Contraindication: Treatment Not Indicated VTE Drug Contraindication: N/A - Med Ordered
--- NOTE | 2021-05-02 11:18 | MHC.CM.PN ---
Addendum entered by Alicia Cerna 05/02/21 11:36: Recieved HCP and MOLST from [facility]: uploaded to [employer]: copy in chart Original Note: Met with pt who was unable to participate in a meaningful conversation: confused, asking CM to call her mother and asking where she is despite frequent redirection. Call placed to [facility] requesting advanced directives/HCP/MOLST forms to be faxed: confirmed with RN at [facility] that pt is a bed hold and requires assistance to complete ADL's in addition to extensive verbal cueing. Pt is ambulatory and can feed self if set up. Pt has had [facility] series CM to follow for receipt of HCP from facility. Pt has a dtr listed as next of contact. Will call to update.
[2021-05-02] MEDS: clonazePAM 1 MG TABLET 2 MG PO (20:57)
[2021-05-02] MEDS: QUEtiapine Fumarate 100 MG TABLET PO (20:57)
[2021-05-02] MEDS: Lithium Carbonate 300 MG TABLET 150 MG PO (22:47)
[2021-05-03] VITALS: BP 116/60; PULSE 67; RESP 20; TEMP 35.7; O2SAT 95
[2021-05-03 04:00] VITALS: BP 146/61; PULSE 66; RESP 16; TEMP 36.2; O2SAT 96
[2021-05-03] MEDS: Dextrose 5 % and 0.9 % NaCl 1,000 ML 100 ML IVCONT (06:06)
[2021-05-03] MEDS: Levothyroxine Sodium 200 MCG TABLET PO (06:06)
[2021-05-03 06:49] VITALS: BP 147/69; PULSE 63; RESP 20; TEMP 36; O2SAT 96
[2021-05-03] MEDS: Enoxaparin Sodium 30 MG/0.3 ML SYRINGE SUBCUT (08:21)
[2021-05-03] MEDS: Carbidopa/Levodopa 25/100 TABLET 3 TAB PO (08:21)
--- NOTE | 2021-05-03 09:45 | P.DS_ITS ---
DS: Providers Provider Date of Service: 05/03/21 Date of admission: 05/02/21 07:50 Date of discharge: 05/03/21 Primary care physician: Sabino dAams MD DS: Diagnosis Discharge Diagnosis (1) Abdominal pain: Status: Acute (2) Parkinsons: Status: Acute (3) Chronic kidney disease, stage 3: Status: Acute (4) Bipolar disorder: Status: Acute DS: Summary Hospital Course Hospital Course: Pleasantly confused 80-year-old female from local SNF presents with diffuse lower abdominal pain.? She cannot give exact history however notes a this is been worsening over the last several days.? There is no mention of fever or chills.? She cannot offer any more detailed history secondary to dementia.? In the emergency room, she received an abdominal pelvis CT, a Doppler study and ultimately a pelvic ultrasound which demonstrated a 5.6 solid left adnexal lesion with an uncertain site of origin.? This correlated with both ultrasound Doppler and CT.? No evidence of ovarian torsion.? She will be admitted for pain management further workup of this mass [facility] Admitted; MRI of pelvis demonstrated multiple leiomyomas without evidence of ovarian mass. Imaginging did reveal mild constipation. On the day of discharge, patient is pain free and appears much more comfortable. She will be discharge back to SNF with follow-up as indicated Time Spent with Patient Time attestation: Total time spent providing and/or coordinating discharge services: Discharge coordination time: Greater than 30 minutes Quality: Stroke Does the patient have a stroke diagnosis?: No Physical Exam Vital Signs: Vital Signs: Last Vital Signs Temp 96.8 F 05/03/21 06:49 Pulse 63 05/03/21 06:49 Resp 20 05/03/21 06:49 BP 147/69 H 05/03/21 06:49 Pulse Ox 96 05/03/21 06:49 BMI result Body Mass Index 26.0 Const: Other: Awake, confused, uncomfortable appearing Resp: Other: Clear to auscultation bilaterally. No rales rhonchi or wheezes Cardio: Other: No S4; positive S1-S2; no S3 murmurs rubs or gallops GI: Other: Soft nontender nondistended normoactive bowel sounds x4 quadrants Extrem: Other: No edema bilaterally Discharge Plan Discharge Patient Disposition: [facility] Discharge Diagnosis: Abdominal Pain Referrals: Sabino Adams MD [Primary Care Provider] - 1 Week Discharge Medications: Continued lithium carbonate 150 mg capsule 1 cap PO BEDTIME 0RF quetiapine 100 mg tablet 1 tab PO BEDTIME 0RF levothyroxine 100 mcg tablet 100 mcg PO MOTUWETHFRSA@0600 0RF lansoprazole 30 mg capsule,delayed release(DR/EC) 1 cap PO DAILY 0RF clonazepam 2 mg tablet 1 tab PO BEDTIME 0RF carbidopa-levodopa 25-100 mg tablet 3 tab PO TID 0RF levothyroxine 100 mcg tablet 200 mcg PO HICKS@0600 0RF ondansetron HCl 4 mg Tablet 4 mg PO Q6H PRN (Reason: Vomiting) 0RF meclizine 25 mg Tablet 25 mg PO DAILY 0RF Discharge Orders: Discharge Order (Routine); Ordered 05/03/21 Ordered By: Jerald Quezada Diet: advance to usual diet Activity on Discharge: As tolerated Stand Alone Forms: Patient Portal Discharge page Care Plan Goals: Abdominal workup showed mild constipation. This will be addressed back at [facility] Concerns: Continue all outpatient therapies Plan of Treatment: Further plans as per receiving physician Assessment: See discharge summary
[2021-05-03 10:53] VITALS: BP 146/67; PULSE 75; RESP 18; TEMP 35.6; O2SAT 96
--- NOTE | 2021-05-03 11:00 | MHC.CM.PN ---
Addendum entered by Maryana Wilkerson 05/03/21 14:21: SHARAD MET WITH PTS DAUGHTER JW WHO REQUESTED A REFERRAL TO [facility] TO FOLLOW FOR POST REHAB SERVICES. SHE ALSO ASKED FOR INFORMATION REGARDING HOW LONG PT IS ALLOWED TO STAY IN [facility]. INFORMATION PROVIDED AND REFERRAL PLACED JW REPORTS SHE WOULD PREFER TO DRIVE PT TO THE REHAB BLS CANCELED Original Note: CM ATTEMPTED TO CONTACT PTS DAUGHTER/HCP, JW, USING THE NUMBER IN EMR ([phone]) HOWEVER IT WAS OUT OF SERVICE. CM CALLED JW USING THE NUMBER LISTED ON PTS HCP, ([phone]), SHE REPORTS SHE IS ON HER WAY TO SEE THE PT NOW AND SHOULD BE HERE IN APPROXIMATELY 30 MINUTES. SHE WAS INFORMED OF PTS PENDING DC BACK TO [facility] AND INDICATED SHE HAD QUESTIONS FOR BOTH MD AND CM. MESSAGE RELAYED TO MD VIA [email or web address] CONNECT SHARAD AND MD WILL MEET WITH JW WHEN SHE ARRIVES PT IS TENTATIVELY SCHEDULED FOR 1300 HOUR TRANSFER BACK TO [facility]IA [facility]
== END 2021-05-03 15:00 | DRG 760 ==
LOC: HO.ED 05-02 06:20 → HO.EDOVER 05-02 08:05 → HO.S3 05-02 19:51
PROVIDERS: Admitting Provider Hospitalist; Emergency Provider Emergency Medicine; PCP Family Medicine; Visit Provider Hospitalist
DX: D25.9 Leiomyoma of uterus, unspecified (principal); N17.9 Acute kidney failure, unspecified; E87.1 Hypo-osmolality and hyponatremia; F31.9 Bipolar disorder, unspecified; K21.9 Gastro-esophageal reflux disease without esophagitis; K59.00 Constipation, unspecified; F32.A Depression, unspecified; G20 Parkinson's disease; N18.30 Chronic kidney disease, stage 3 unspecified; Z20.822 Contact with and (suspected) exposure to COVID-19; Z88.2 Allergy status to sulfonamides; Z88.5 Allergy status to narcotic agent; Z79.890 Hormone replacement therapy; Z79.899 Other long term (current) drug therapy
CPT/HCPCS: 70250; 71045; 72197; 74176; 76856; 80053; 81003; 85007; 85027; 87635; 93975; 96361; 96374; 96375; 96376; 99285; A9585; J1650; J2270; J2405